=== PATIENT | female | born 1960 | race African-American/Black ===

== ENCOUNTER 2018-10-10 13:17 | Emergency (ER) | payer MEDICAID ==
[~2018-10-10] VITALS: Ht 165.1 cm; Wt 58.1 kg
[2018-10-10 13:30] VITALS: Ht 165.1 cm; Wt 58.1 kg
[2018-10-10 17:11] VITALS: BP 130/44
== END 2018-10-10 17:11 | disposition home or self-care (01) ==
LOC: ED 13:17
DX: M62.838 Other muscle spasm (principal); G44.209 Tension-type headache, unspecified, not intractable